=== PATIENT | male | born 1990 | race Caucasian/White ===

== ENCOUNTER 2016-10-08 12:00 | Emergency (ER) ==
[2016-10-08] MEDS ORDERED: NORCO-5 PO ONE (13:13)
--- NOTE | 2016-10-08 13:35 | PROVIDER DOCUMENTATION ---
HPI-Rash/Wound/ReCheck - General Chief Complaint: Work Related Injury Stated Complaint: burn to right arm Time Seen by Provider: 10/08/16 12:53 Source: patient Allergies/Adverse Reactions: Allergies Allergy/AdvReac Type Severity Reaction Status Date / Time No Known Allergies Allergy Verified 10/08/16 12:16 Home Medications: Home Medication List Medication Instructions Recorded Confirmed Last Taken Type Famotidine [Pepcid] 20 mg PO DAILY #20 tablet 10/08/16 Unknown Rx Ketorolac [Toradol] 10 mg PO Q6H PRN PRN #20 tablet 10/08/16 Unknown Rx - History of Present Illness-Dermatology Nature of Presenting Problem: 25 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 he reports he immediately washed it with cold water and came to the ED. denies any other injury, splashing. last tetanus 2 yrs ago Location: reports: upper extremity Body-Front/Back: 1 - partial thickness watkins with bullae Quality: reports: painful Severity: reports: moderate Onset/Duration: reports: just prior to arrival Timing: reports: still present, constant, getting worse Context/Associated Symptoms: reports: burn, blisters Identifiable cause?: Yes Locality of Occurance: Work Similar Symptoms Previously?: No Recently seen or treated by another doctor?: No Review of Systems - Adult - REVIEW OF SYSTEMS - ADULT Constitutional: reports: no symptoms reported. denies: chills, fever, fatique Eyes: reports: no symptoms reported. denies: discharge, blurred vision, double vision Ears, Nose, Mouth & Throat: reports: no symptoms reported. denies: ear discharge, ear pain, nose pain, loose teeth, throat pain, throat swelling Cardiovascular: reports: no symptoms reported. denies: chest pain, palpitations , syncope Respiratory: reports: no symptoms reported. denies: chronic cough, cough, shortness of breath, wheezing Gastrointestinal: reports: no symptoms reported. denies: abdominal pain, diarrhea, nausea, vomiting Genitourinary: reports: no symptoms reported. denies: dysuria, hematuria, urgency Musculoskeletal: reports: no symptoms reported. denies: bone pain, joint pain, joint swelling, neck pain Integumentary: reports: see HPI, skin sores/ulcer. denies: hives, itching, rash Neurological: reports: no symptoms reported. denies: ataxia, dizziness/vertigo Psychiatric: reports: no symptoms reported Endocrine: reports: no symptoms reported Hematologic/Lymphatic: reports: no symptoms reported Allergic/Immunologic: reports: no symptoms reported All Other Systems: Reviewed and Negative Past History - Adult - PAST MEDICAL HISTORY-ADULT Review of Records: reports: Old Records Reviewed, Nursing Assessment Review, Medications Reviewed, Social history reviewed & non-contributory. Major Childhood Illnesses: reports: denies history Cardiovascular: reports: denies history Respiratory: reports: denies history Gastrointestinal: reports: denies history Obstetrical/Gynecological: reports: denies history Genitourinary: reports: denies history Musculoskeletal: reports: denies history Neurological: reports: denies history Endocrine/Immune: reports: denies history Other Conditions: reports: denies history - PRIOR SURGERIES/PROCEDURES Surgical/Procedure History: reports: none - PRIOR HOSPITALIZATIONS Prior Hospitalizations: reports: none - IMMUNIZATION STATUS Childhood Immunizations: See Nurse Assessment Flu Vaccine: See Nurse Assessment - FAMILY HISTORY Family History: reviewed, not pertinent - SOCIAL HISTORY Smoking: denies, non-smoker Substance Use: none/never Alcohol Use Frequency: never Physical Exam-General - PHYSICAL EXAM-ADULT Initial Vital Signs Reviewed: Yes - CONSTITUTIONAL General Appearance: appears well, alert, mild distress. negative: no apparent distress, moderate distress - EYES Eyes: pink conjunctivae - HEAD, EARS, NOSE, MOUTH & THROAT HENMT: normocephalic/atraumatic, moist mucous membranes, normal ENT inspection - NECK Neck: non-tender, full range of motion, supple, normal inspection - RESPIRATORY Respiratory: chest non-tender, lungs clear, normal breath sounds, no pleuratic chest pain, no respiratory distress, no accessory muscle use. negative: respiratory distress, decreased breath sounds, accessory muscle use, crackles, rales, rhonchi - CARDIOVASCULAR Cardiovascular: normal peripheral pulses, regular rate, rhythm - CHEST (BREASTS) Chest/Breast: deferred - GASTROINTESTINAL (ABDOMEN) Abdominal Exam: normal bowel sounds, non tender, soft - GENITOURINARY Male Genitalia: deferred Rectal Exam: deferred Hemoccult Exam: deferred - LYMPHATIC Lymphatic: no adenopathy - MUSCULOSKELETAL Back Exam: normal inspection, no CVA tenderness, no vertebral tenderness Extremity: normal range of motion, normal gait, no pedal edema, no calf tenderness, normal capillary refill, pelvis stable, erythema (right forearm with partial thinkness watkins; 1.5% TBSA; no circumferential watkins), inflammation , swelling, tenderness. negative: non-tender, normal inspection, abnormal NV exam, calf tenderness, deformity, joint effusion, pulse deficit, pedal edema, slow capillary refill Peripheral Pulses: radial (R): 3+, radial (L): 3+, dorsalis-pedis (R): 3+, dorsalis-pedis (L): 3+ - SKIN Integumentary: normal color, normal turgor, swelling, tenderness - NEUROLOGIC Neurologic: grossly normal, no motor/sensory deficits - PSYCHIATRIC Psych/Mental Status: normal mood/affect, normal thought content, normal thought process, oriented x 3 Progress - PLAN OF CARE/RESULTS Progress/Plan/Lab Results: Orders Category Date Time Status Nursing [place] [place] [facility] DIRECTED Care 10/08/16 13:30 Active Hydrocodone/APAP 5 mg/325 mg [[place]-5] Med 10/08/16 13:13 Discontinued 1 each PO NOW ONE Vital Signs - 24 hr 10/08/16 10/08/16 12:04 13:55 Temperature 97.3 F L Pulse Rate 62 60 Respiratory 18 18 Rate Blood Pressure 125/81 120/77 O2 Sat by Pulse 100 100 Oximetry Departure - Departure Time of Disposition Order: 13:31 DIAGNOSIS: Burn Disposition: HOME 01 Certified Medical Emergency: Emergent Condition: Stable Additional Instructions: follow up with Dr. Ramos, surgeon for further treatment, call today for an appointment. toradol for pain. ED Follow Up Instructions: You have been treated by a care provider in the Emergency Department. These instructions are being provided to you so you can have an understanding of how to care for yourself upon discharge. Upon discharge from the Emergency Department, you are responsible for making arrangements for follow-up care by a physician of your choice. Take all prescribed medications as directed. Return to the Emergency Department immediately for any new or worsening symptoms. You may call the Physician Referral phone number at [phone] to obtain a list of Physicians who are taking new patients. Prescriptions: Famotidine [Pepcid] 20 mg PO DAILY #20 tablet Ketorolac [Toradol] 10 mg PO Q6H PRN PRN #20 tablet PRN Reason: watkins to right forearm Referrals: None,PCP [Primary Care Provider] - Abdifatah Ramos MD [STAFF PHYSICIAN] - Forms: Return to School/Parent Work Instructions: Burn Care, [id number] Attestation - Physician/ ISAAC Attestation Patient care was provided by Advanced Practice Provider:: Yes Advanced Practice Provider:: Brad Moser Advanced Practice Provider documentation review:: The Mid-level provider documentation, treatment plan and medical decision making was reviewed by the physician who agrees with all treatment and medical decision making by the MLP.
[2016-10-08 13:56] VITALS: BP 120/77
== END 2016-10-08 13:56 | disposition home or self-care (01) ==
LOC: ED 12:00
DX: T22.211A Burn of second degree of right forearm, initial encounter (principal); M79.631 Pain in right forearm; L53.9 Erythematous condition, unspecified; R22.31 Localized swelling, mass and lump, right upper limb; X10.2XXA Contact with fats and cooking oils, initial encounter